=== PATIENT | female | born 1975 | race Asian ===

== ENCOUNTER 2018-11-09 05:42 | Day surgery (SDC) | payer OTHER ==
[2018-11-08 09:22] VITALS: BMI 27.4
--- NOTE | 2018-11-09 08:40 | HP ---
History & Physical Update - History History: No Change - Physical Physical: No Change - Assessment Assessment: No Change - Plan Plan: No Change (Agree with H&P from 11/03/18, intrauterine polyp, for hysteroscopic resection and D&C)
[2018-11-09] MEDS ORDERED: ACETAMINOPHEN 325 MG TABLET (FP) PO PRN (08:42)
[2018-11-09] MEDS ORDERED: IBUPROFEN 600 MG TABLET (FP) PO PRN (08:42)
[2018-11-09] MEDS ORDERED: LACTATED RINGERS SOLUTION 1,000 ML IV SCH ×2 (08:45→09:15)
[2018-11-09] MEDS ORDERED: PROPOFOL 20 ML ONE (08:49)
[2018-11-09] MEDS ORDERED: MIDAZOLAM HCL 2 MG/2 ML SINGLE DOSE VIAL ONE (08:49)
[2018-11-09] MEDS ORDERED: oxyCODONE HCL 5 MG TABLET PO PRN ×2 (09:02)
[2018-11-09] MEDS ORDERED: ONDANSETRON 4 MG/2 ML VIAL IVPUSH PRN (09:02)
[2018-11-09] MEDS ORDERED: DEXAMETHASONE SOD PHOSPHATE 4 MG/1 ML VIAL ONE (09:32)
[2018-11-09] MEDS ORDERED: LIDOCAINE HCL/PF 2% SDV 5ML VIAL ONE (09:32)
[2018-11-09] MEDS ORDERED: KETOROLAC TROMETHAMINE 30 MG/1 ML VIAL IVPUSH ONE (10:15)
[2018-11-09] MEDS ORDERED: KETOROLAC TROMETHAMINE 30 MG/1 ML VIAL ONE (10:15)
[2018-11-09] MEDS ORDERED: KETOROLAC TROMETHAMINE 30 MG/1 ML VIAL IM ONE (10:19)
[2018-11-09] MEDS ORDERED: ONDANSETRON 4 MG/2 ML VIAL IVPUSH ONE (10:40)
[2018-11-09] MEDS ORDERED: ONDANSETRON 4 MG/2 ML VIAL ONE (11:24)
[2018-11-09] MEDS ORDERED: ACETAMINOPHEN 1000 MG/100 ML VIAL (NON FORMULARY) IVPB ONE ×2 (12:08→12:10)
[2018-11-09 13:03] VITALS: TEMP 98.1
[2018-11-09 17:57] VITALS: BP 125/64; PULSE 70
--- NOTE | 2018-11-09 21:22 | OP ---
Operative Note - Note: Operative Date: 11/09/18 Pre-Operative Diagnosis: abnormal uterine bleeding Operation: hysteroscopy, D&C, polypectomy Findings: small anterior wall endometrial polyp Post-Operative Diagnosis: Same as Pre-op Surgeon: Shanika Salguero Anesthesiologist/[employer]: Yolanda Macdonald Anesthesia: General Specimens Removed: endometrial polyp, endometrial curettings Estimated Blood Loss (mls): 5 Operative Report Dictated: Yes
--- NOTE | 2018-11-10 06:47 | OP ---
DATE OF OPERATION: 11/09/2018 PREOPERATIVE DIAGNOSES: Abnormal uterine bleeding, endometrial polyp. POSTOPERATIVE DIAGNOSES: Abnormal uterine bleeding, endometrial polyp. PROCEDURE: Hysteroscopy, polypectomy, dilation and curettage. SURGEON: Shanika Salguero DO ANESTHESIA: General by Dr. Yolanda Macdonald. COUNTS: Sponge, needle and instrument count reported to be correct. SPECIMENS REMOVED: Endometrial curettings and endometrial polyp. DISPOSITION: Stable to PACU. BRIEF HISTORY AND PROCEDURE: Patient is a 43-year-old female who had been seen in the office with complaint of abnormal uterine bleeding. Upon ultrasound examination was found to have an intrauterine polyp. The patient was consented for a hysteroscopic resection of the polyp and D & C in the office. Consents were reconfirmed upon admission on November 09, 2018. She was taken back to the operating room, placed in the dorsal lithotomy position, given general anesthesia, prepped and draped in the usual sterile fashion. A hard timeout was performed. A speculum was placed inside the vagina. The anterior lip of the cervix was grasped and cervix was dilated to accommodate an operative hysteroscope which was advanced to the fundus of the uterus. Bilateral tubal ostia were noted. Some polypoid tissue on the posterior aspect of the uterus was noted and an anterior uterine polyp was appreciated at the uterocervical junction. This polypoid tissue and anterior polyp were resected with a resectoscope device in several passes until all tissue had been removed. Sharp D & C and suction D & C were performed at this time to remove detached tissue and to get an endometrial sampling. A final look with the camera revealed no evidence of uterine perforation and all polypoid tissue had been removed. All instruments were then removed from the vagina. Bleeding was noted from the tenaculum site. At this point a single [id number] 3-0 Vicryl suture was placed to achieve hemostasis which was done without difficulty. Minimal bleeding was noted from the cervical os. All instruments were removed from the vagina. Counts were reported to be correct. Patient tolerated her procedure well, is recovering in stable condition in the PACU after the procedure. SHANIKA SALGUERO DO /[id number]
--- NOTE | 2018-11-16 10:55 | PATH ---
Surgical Pathology Report Patient Name: JAJA YOUNG [facility]. Rec. #: [id number] /Age/Gender: 1975 (Age: 43) / F Account: [id number] Location: [facility] SURGICAL Taken: 11/09/2018 Received: 11/09/2018 Reported: 11/16/2018 Physicians: Shanika Salguero M.D. Specimen(s) Received ENDOMETRIAL CURETTINGS AND POLYP Clinical History polyps Final Diagnosis ENDOMETRIUM AND POLYP, CURETTAGE: FRAGMENTS OF ENDOMETRIAL POLYP. Electronically Signed Dayanara Mcginnis M.D. Gross Description Received in formalin, labeled "endometrial curettings and polyp" are multiple irregular portions of soft tissue measuring 1.0 x 1.0 x 0.1 cm in aggregate. The specimen is submitted in toto in two cassettes. ANÍBAL/11/10/2018 rupert/11/10/2018
== END 2018-11-09 15:30 | disposition home or self-care (01) ==
LOC: JASU-SURG 05:42
PROVIDERS: ATTEND Obstetrics & Gynecology
PROC: 0UB98ZX Excision of Uterus, Via Natural or Artificial Opening Endoscopic, Diagnostic (ICD-10-PCS; principal; 2018-11-09 09:00)
PROC: 0UDB8ZX Extraction of Endometrium, Via Natural or Artificial Opening Endoscopic, Diagnostic (ICD-10-PCS; 2018-11-09 09:00)
DX: N84.0 Polyp of corpus uteri (principal); N93.9 Abnormal uterine and vaginal bleeding, unspecified
CPT/HCPCS: 84703; 88305-TC; 94760; J0131